=== PATIENT | female | born 2005 | race African-American/Black ===

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

== ENCOUNTER 2024-04-29 10:12 | Outpatient (AMB) | payer OTHER, SELFPAY ==
--- NOTE | 2024-04-29 10:13 | MHC.OFVISPED ---
Vital Signs 04/29/24 10:22 Height 5 ft 6.5 in Height percentile 90 Weight 122 lb Weight percentile 50 Measurement Type Standing Scale BMI 19.4 BMI percentile 25 Temp 98.5 F Temp Source Temporal Artery Scan Pulse 90 Pulse Source Pulse Oximeter BP 112/68 Blood Pressure Source Manual Cuff/Palpation Position Sitting Pulse Oximetry (%) 99 Pediatric Intake Visit Reasons: Headaches Accompanied by: Mother Allergies No Known Allergies Allergy (Verified 04/29/24 10:23) Medication List - Last Reconciled 04/29/24 by Yumiko Salguero PA-C albuterol sulfate 90 mcg/actuation 2 puffs inhalation Q4-6H PRN cholecalciferol (vitamin D3) 1,250 mcg PO QWEEK 6 weeks cholecalciferol (vitamin D3) 50 mcg PO DAILY 30 days fluticasone propionate 50 mcg/actuation (Flonase Allergy Relief) 2 sprays intranasal DAILY 30 days Dental Screening Dental Screen Date: 08/28/23 HPI Comments Details: 18-year-old female presents accompanied by her mother and younger sister for evaluation of headaches. Patient reports she has had headaches for several years, however they have recently worsened and are occurring more frequently. Patient reports that over the past several months she has been waking up with pain in the right frontal and temporoparietal area. She will typically take a Tylenol or ibuprofen which helps. She reports that by the time she gets to work the headache is typically gone and she can complete her day, however by the end of her shift and when she gets back home the headache has returned. She will often nap in the afternoons to alleviate the pain. Admits to photophobia, dizziness and nausea. She sleeps about 9 hours a night but reports she often wakes up around 2 or 3 in the morning and typically has interrupted sleep. Chronically skips breakfast but eats lunch and dinner every day. Has been working on increasing water intake during the day. 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 Reports her overall stress and anxiety symptoms are better since starting her new job. Does not drink caffeine. No family history of migraines reported. Has been using Flonase which has alleviated her nasal obstruction but has not helped with her headaches. [facility] Medical History Asthma Appendicitis Surgical History History of appendectomy Family History Maternal Grandmother Hypertension Cardiovascular disease Other Asthma Social History (Updated 04/29/24 @ 10:57 by Yumiko Salguero PA-C) Household Members: Family Housing: House Alcohol intake: never Patient Tobacco Use Status: Never used Tobacco Current occupational status: employed Current occupation: [employer] Cognitive needs: No Hearing needs: No Vision needs: No Review of Systems Const All systems reviewed & are unremarkable except as noted in HPI and below Pediatric Exam Const Constitutional General: no acute distress, well developed, alert and awake Nutritional appearance: well nourished HENMT Head: normal to inspection, normocephalic and atraumatic Ears: hearing grossly normal bilaterally, external ears normal, TM's normal bilaterally and EAC's normal Nose: Normal external nose present, Normal nares present and Normal nasal mucous membranes and turbinates present Mouth: Normal oral and palatal mucosa present, lip normal, tongue normal, moist mucous membranes and palate normal Throat: posterior oropharynx normal, tonsils normal and uvula midline Eyes General: appearance normal, both eyes and all related structures Alignment and Position: alignment normal Periorbital: periorbital findings normal Eyelids: eyelids normal Conjunctivae: conjunctivae normal Sclerae: sclerae normal Pupils: Equal, round and reactive pupils present EOM: EOMs intact bilaterally Direct ophthalmoscopy: no photophobia Neck Lymphatic: no lymphadenopathy noted Chest Chest: normal inspection of the chest Resp Effort & Inspection: normal respiratory effort Auscultation: clear to auscultation bilaterally Cardio Rate: regular rate Rhythm: regular rhythm Heart sounds: S1 normal heart sound present and S2 normal heart sound present Skin General: no rashes or lesions noted Neuro General: Yes No meningeal signs Cranial nerves: Yes CN's II-XII intact bilaterally and Yes Equal, round and reactive pupils present Cognition (Neuro): normal cognition Gait: Normal gait present Motor exam (neuro): Motor abnormalities not present Psych Appearance: well kempt Mood: congruent mood Assessment & Plan Assessment & Plan (1) Chronic headache: Code(s): R51.9 - Headache, unspecified; G89.29 - Other chronic pain Qualifiers: Headache type: unspecified Intractability: not intractable Qualified Code(s): R51.9 - Headache, unspecified; G89.29 - Other chronic pain Plan: 18-year-old female with chronic, daily headaches. Discussed that patient's headaches are likely migrainous in etiology. However, given the increase in frequency and severity of headaches I recommended we proceed with an MRI of the brain without contrast to rule out intracranial pathology. Will try sumatriptan for abortive therapy. Proper use of medication discussed. Reviewed the risk of rebound headache. We will consider prophylactic therapy with magnesium, B2 and amitriptyline after MRI results return. Orders: Orders MR head/brain wo con Today G89.29 - Other chronic pain, R51.9 - Headache, unspecified Medications: New sumatriptan succinate take 1 tab at onset of headache; if no relief may repeat 1 tab after at least 2 hrs; max = 4 tabs/24 hr PO 9 tabs 0RF
[2024-04-29 10:22] VITALS: BP 112/68; PULSE 90; TEMP 36.9; O2SAT 99; BMI 19.4
== END 2024-04-29 10:58 | disposition home or self-care (01) ==
PROVIDERS: PCP Physician Assistant; Visit Provider Physician Assistant
DX: R51.9 Headache, unspecified (principal); G89.29 Other chronic pain
CPT/HCPCS: 99214

== ENCOUNTER 2024-07-11 19:21 | Outpatient (REF) | payer OTHER, SELFPAY ==
--- NOTE | ~2024-07-11 | MR_ITS ---
EXAMINATION: MR BRAIN WITHOUT CONTRAST CLINICAL INFORMATION: Headache. COMPARISON: None available. TECHNIQUE: MRI of the brain was obtained using routine sequences without contrast. FINDINGS: Susceptibility artifact from the patient's dental hardware limits evaluation of the anterior cranial fossae. Within this limitation of this exam, there is no demonstrated focal restricted diffusion to suggest acute or subacute cerebral ischemia. No demonstrated evidence of acute or chronic hemorrhagic products on heme-sensitive imaging. Few nonspecific small foci of T2 FLAIR hyperintensity within the deep and periventricular white matter of the bilateral frontal lobes. No additional parenchymal signal abnormalities. The ventricles are normal in morphology and size. No abnormal mass effect. No midline shift. Normal appearance of the pituitary gland. The cerebellar tonsils are mildly low lying, positioned 0.4 cm below the foramen magnum. There is partial crowding of the foramen magnum. Normal arterial and venous vascular flow voids are present. Normal, homogeneous marrow signal. No signal abnormalities within the mastoids. MR/MR head/brain wo con IMPRESSION: 1. No acute intracranial abnormalities. 2. Minimal nonspecific white matter changes. 3. Mild cerebellar tonsillar ectopia. Partial crowding of the foramen magnum. Electronically signed by: Ronald Baez DO 07/11/2024 09:21 PM EDT
== END 2024-07-11 19:22 | disposition home or self-care (01) ==
LOC: HO.MRI 19:21
PROVIDERS: Visit Provider Physician Assistant
DX: R51.9 Headache, unspecified (principal); G89.29 Other chronic pain
CPT/HCPCS: 70551

== ENCOUNTER 2024-08-03 11:07 | Outpatient (AMB) | payer OTHER, SELFPAY ==
--- NOTE | 2024-08-03 11:13 | A.OFFPC_ITS ---
Vital Signs 08/03/24 11:17 Height 5 ft 6.38 in Weight 126 lb 4 oz BMI 20.1 BP 110/76 Blood Pressure Location Rt brachial Position Sitting Respiration 12 Pulse 81 Pulse Source Pulse Oximeter Temp 98.1 F Temp Source Oral Pulse Oximetry (%) 99 Oxygen Delivery Method Room Air Intake Visit Reasons: deshawn from jose m/ medication Intake Note: New patient visit. Needs refill on Flonse Allergies No Known Allergies Allergy (Verified 08/03/24 12:08) Medication List - Last Reconciled 08/03/24 by Francesca Gill, [facility] albuterol sulfate 90 mcg/actuation 2 puffs inhalation Q4-6H PRN fluticasone propionate 50 mcg/actuation (Flonase Allergy Relief) 2 sprays intranasal DAILY 30 days sumatriptan succinate take 1 tab at onset of headache; if no relief may repeat 1 tab after at least 2 hrs; max = 4 tabs/24 hr PO Tobacco use date assessed: 08/03/24 Dental Screening Dental Screen Date: 08/03/24 Did you have a dental visit in the last 12 months?: Yes Did you have a dental problem in the last 6 months where you did not have access to dental care?: No Was dental information given to patient?: Patient has dentist HPI HPI Comments 2 History of Present Illness Details 18-year-old female with vitamin-D defici ency, mild intermittent asthma, migraine headaches, major depressive disorder, generalized anxiety disorder allergic rhinitis, cerebellar tonsillar ectopia s/p appendectomy Social: Works at [employer] [place], born in [place], lives with mother. Does not drive. Fri ends and family bring her to appointments. Her hope is to return to college for a nursing degree. Health Maintenance Flu declined Tdap 2018 Pap n/a Specialists: Counseling Neuro @ [facility] - no longer ff'd Here today to est care; coming from Dr Jose M Collins, and for complete physical exam. Pediatric records reviewed before today's visit. Today she reports that she was active with a neurologist/neurosurg at [facility]. Reports that she had a brain MRI completed - reviewed 06/2024. Advised that the only thing that she can do for her chronic migraine headaches is to take medications. She does suffer from migraine headaches every single day associated with nausea, dizziness, feeling fatigued and weak. She also does endorse car sickness. She denies any vomiting. She has never been on a preventative migraine medication. She is currently prescribed Imitrex of what she only takes 1 tablet. She has never repeated the 2nd dose as she was not aware that she could do this. She also uses Tylenol and [id number] pain relievers. She wears eyeglasses in his overdue for an eye exam. Asthma is well controlled with p.r.n. use of albuterol. Allergies are well controlled with use of Flonase. Does have a history of vitamin-D deficiency however stopped taking the vitamin-D supplement. Was in counseling in the past for generalized anxiety and major depressive disorder. While her symptoms continue and occur daily she declines any medications or referrals for counseling at this time. Reports regular menses. She is not sexually active and denies ever having been sexually active. She is not on any control. Declined flu vaccine Plan Start riboflavin 400 mg p.o. daily at bedtime for migraine prevention, start amitriptyline 10 mg p.o. daily at bedtime also for migraine prevention, advised to use Imitrex x2 doses if needed rather than just 1 dose. Start p.r.n. Zofran as needed for nausea associated with migraine headaches. Referred to Ophthalmology for eye exam. Continue all medications as currently prescribed Return to office in 1 year for complete physical exam, sooner as needed. [facility] Medical History (Updated 08/03/24 @ 15:29 by Francesca Gill, [facility]) Moderate anxiety Mild depression Asthma Appendicitis Surgical History History of appendectomy Family History Maternal Grandmother Hypertension Cardiovascular disease Other Asthma Social History (Updated 08/03/24 @ 11:17 by Comfort Bragg CMA) Household Members: Family Housing: House (Town house) Alcohol intake: never Patient Tobacco Use Status: Never used Tobacco e-Cigarette/Vaping Use: Never Used Use of substances other than those prescribed or required for medical reasons: No service: No Current occupational status: employed 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 1. Little interest or pleasure in doing things: more than half the days 2. Feeling down, depressed, or hopeless: more than half the days 3. Trouble falling or staying asleep, or sleeping too much: more than half the days 4. Feeling tired or having little energy: more than half the days 5. Poor appetite or overeating: more than half the days 6. Feeling bad about yourself - or that you are a failure or have let yourself or your family down: more than half the days 7. Trouble concentrating on things, such as reading the newspaper or watching television: more than half the days 8. Moving or speaking so slowly that other people could have noticed. Or the opposite - being so fidgety or restless that you have been moving around a lot more than usual: not at all 9. Thoughts that you would be better off or of hurting yourself in some way: not at all Total score: 14 Depression Screening Interpretation: Positive Depression Screening Follow-up: Existing condition and Declines treatment Depression Screening Done: Yes 91338 - PHQ-9 Billing: Yes Source: Developed by Drs. Derik Rowe, Aracelis Jo, George Kaur and colleagues, with an educational sissy from [employer]. Thrive Questionnaire Date Thrive assessed: 08/03/24 I am a: Patient What is your living situation today?: I have a steady place to live Within the past 12 months, did the food you bought not last and you didn't have the money to get more?: Never true Within the past 12 months, did you worry whether your food would run out before you got money to buy more?: Never true Do you have trouble paying for medicines?: No Do you have trouble getting transportation to medical appointments?: No Do you have trouble paying your heating and electricity bill?: No Do you have trouble taking care of your child, family member or friend?: No Do you have trouble with day-to-day activities such as bathing, preparing meals, shopping, managing finances, etc.?: No Are you currently unemployed and looking for a job?: No Are you interested in more education?: No Please select the resources that you would like help with: None Currently or been in a relationship where the following occur: No concerns reported THRIVE Score: 0 AUDIT C Alcohol Use Questionnaire (AUDIT-C) 1. How often do you have a drink containing alcohol?: Never 3. How often do you have six or more drinks on one occasion?: Never Total Score: 0 Score Reviewed/Action Taken: Yes RAVI-7 AMB Questionnaire RAVI-7 Date RAVI - 7 assessed: 08/03/24 Feeling nervous, anxious, or on edge: 2 = More than half the days Not being able to stop or control worryin = More than half the days Worrying too much about different things: 2 = More than half the days Trouble relaxin = More than half the days Being so restless that it is hard to sit still: 2 = More than half the days Becoming easily annoyed or irritable: 2 = More than half the days Feeling afraid as if something awful might happen: 2 = More than half the days Total RAVI-7 score (0-4 normal; 5-9 mild; 10-14 moderate; 15-21 severe): 14 Source: Developed by Drs. Derik Roew, Aracelis Jo, George Kaur and colleagues, with an educational sissy from [employer]. RAVI-7 Assessment Billing RAVI-7 Assessment Tool: RAVI-7 Assessment 70482 ACT Questionnaire In the past 4 weeks, how much of the time did your asthma keep you from getting as much done at work, school or at home?: None of the time During the past 4 weeks, how often have you had shortness of breath?: Not at all During the past 4 weeks, how often did your asthma symptoms wake you up at night or earlier than usual in the morning?: Not at all During the past 4 weeks, how often have you had to use your rescue inhaler or nebulizer medication?: Not at all How would you rate your asthma control during the past 4 weeks?: Completely controlled ACT Interpretation: Negative Score: 25 Review of Systems Const Details: Constitutional: Denies fever. Skin: Denies rash. Eye: Denies eye pain. ENMT: Denies sore throat and nasal congestion. Respiratory: Denies shortness of breath and cough. Gastrointestinal: Denies nausea, vomiting or abdominal pain. Cardiovascular: Denies chest pain and syncope. Genitourinary: Denies dysuria. Musculoskeletal: Denies back pain and extremity pain. Psychiatric: Denies suicidal thoughts and substance abuse. Allergy/ Immunologic: Denies impaired immunity. Physical exam (Primary Care) Vital Signs: Last Vital Signs Temp 98.1 F 08/03/24 11:17 Pulse 81 08/03/24 11:17 Resp 12 08/03/24 11:17 BP 110/76 08/03/24 11:17 Pulse Ox 99 08/03/24 11:17 Oxygen Delivery Method Room Air 08/03/24 11:17 BMI result Body Mass Index 20.1 Tobacco/Smoking Status: Tobacco use Status Tobacco use date assessed 08/03/24 08/03/24 11:21 Patient Tobacco Use Status Never used Tobacco 08/03/24 11:21 e-Cigarette/Vaping Use Never Used 08/03/24 11:21 Depression Screening Interpretation: Positive Depression Screening Follow-up: Existing condition and Declines treatment Currently or been in a relationship where the following occur: No concerns reported Const Other: General: Well developed, well nourished, in no acute distress. Appears stated age. Head: Normocephalic, atraumatic. Eyes: Pupils are equal, round and reactive to light and accommodation. Conjunctivae are clear. Vision grossly normal. Ears: TMs clear AU, EACS WNL Nose: Patent, without discharge. Mouth: There are no ulcers or lesions noted. No inflammation, no post nasal drip, no plaques nor exudates. Neck: Supple, no adenopathy or thyromegaly. Lungs: Clear to auscultation bilaterally. No rales, rhonchi or wheeze noted. Good air flow in all [place]. Heart: Regular rate and rhythm. No murmurs, click, rubs or gallops are noted. Abdomen: Bowel sounds present in all quadrants. The abdomen is soft, nontender, with no masses or organomegaly noted. No hernias are noted. Musculoskeletal: Joints are nontender, without swelling, redness, or effusions. Range of motion is observed to be normal. Pulses: Peripheral pulses are equal and palpable bilaterally. Extremities: No clubbing, cyanosis nor edema is noted. Neurologic: Gait and station normal. Cranial Nerves 2-12 intact. Motor strength grossly symmetrical and intact. No sensory loss. Balance normal. Skin: No rashes, ulcers, or lesions noted. Turgor is good. Skin color is good. Hair and nails are without abnormalities. Psych: Normal eye contact, affect and mood appropriate, and normal interactions. Patient is alert and appropriate to context. Coding Level of Care Code New Pt Prev Care 18-39yr([id number] Diagnoses Encounter for general adult medical examination without abnormal findings Z00.00 Vitamin D deficiency E55.9 Mild episode of recurrent major depressive disorder F33.0 Major depression episode severity: mild RAVI (generalized anxiety disorder) F41.1 Cerebellar tonsillar ectopia Q04.8 Intractable migraine without aura and with status migrainosus G43.011 Status migrainosus presence: with status migrainosus Intractability: intractable Blurred vision, bilateral H53.8 Laboratory exam ordered as part of routine general medical examination Z00.00 Mild intermittent asthma in adult without complication J45.20 Additional Codes Asthma Control Questionnaire - ACT Interpretation: Negative ([id number]) PHQ-9 - 95937 - PHQ-9 Billing: Yes ([id number]) RAVI-7 Assessment Billing - RAVI-7 Assessment Tool: RAVI-7 Assessment 84536 ([id number]) Assessment & Plan Assessment & Plan (1) Encounter for general adult medical examination without abnormal findings: Code(s): Z00.00 - Encounter for general adult medical examination without abnormal findings Plan: . (2) Vitamin D deficiency: Code(s): E55.9 - Vitamin D deficiency, unspecified Category: Medical Plan: . (3) MDD (major depressive disorder), recurrent episode: Code(s): F33.9 - Major depressive disorder, recurrent, unspecified Category: Medical Qualifiers: Major depression episode severity: mild Qualified Code(s): F33.0 - Major depressive disorder, recurrent, mild Plan: . (4) RAVI (generalized anxiety disorder): Code(s): F41.1 - Generalized anxiety disorder Category: Medical Plan: . (5) Cerebellar tonsillar ectopia: Comment: Seen on MRI imaging, referred to Neurosurgery - no surgery needed. 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 Code(s): Q04.8 - Other specified congenital malformations of brain Category: Medical Plan: . (6) Migraine headache without aura: Code(s): G43.009 - Migraine without aura, not intractable, without status migrainosus Category: Medical Qualifiers: Status migrainosus presence: with status migrainosus Intractability: intractable Qualified Code(s): G43.011 - Migraine without aura, intractable, with status migrainosus Plan: . (7) Blurred vision, bilateral: Code(s): H53.8 - Other visual disturbances Category: Medical Plan: . (8) Laboratory exam ordered as part of routine general medical examination: Code(s): Z00.00 - Encounter for general adult medical examination without abnormal findings Category: Medical Plan: . (9) Mild intermittent asthma in adult without complication: Code(s): J45.20 - Mild intermittent asthma, uncomplicated Category: Medical Plan: . Orders: Orders Complete Blood Count no Diff Today Z00.00 - Encounter for general adult medical examination without abnormal findings Lipid Panel Today Z00.00 - Encounter for general adult medical examination without abnormal findings TSH reflex Free T4 Today Z00.00 - Encounter for general adult medical examination without abnormal findings Vitamin B12 and Folate Today Z00.00 - Encounter for general adult medical examination without abnormal findings IRON PROFILE Today Z00.00 - Encounter for general adult medical examination without abnormal findings Comprehensive Met. Panel Today Z00.00 - Encounter for general adult medical examination without abnormal findings Hemoglobin A1c Today Z00.00 - Encounter for general adult medical examination without abnormal findings Microalbumin, Random (w Creat) Today Z00.00 - Encounter for general adult medical examination without abnormal findings Vitamin D 25-OH Total Today Z00.00 - Encounter for general adult medical examination without abnormal findings Referrals Ophthalmology Referral H53.8 - Other visual disturbances Medications: New riboflavin (vitamin B2) for migraine prevention 400 mg PO DAILY 90 tabs 2RF amitriptyline for migraine prevention 10 mg PO BEDTIME 90 tabs 2RF ondansetron HCl 4 mg PO Q8H 3 days PRN 15 tabs 0RF nausea and vomiting Refilled fluticasone propionate 50 mcg/actuation (Flonase Allergy Relief) administer into each nostril 2 sprays intranasal DAILY 30 days 16 grams 11RF sumatriptan succinate take 1 tab at onset of headache; if no relief may repeat 1 tab after at least 2 hrs; max = 4 tabs/24 hr PO 9 tabs 3RF albuterol sulfate 90 mcg/actuation 2 puffs inhalation Q4-6H PRN 6.7 grams 1RF shortness of breath or wheezing Patient Instructions: Health screenings for women You should visit your health care provider from time to time, even if you are healthy. The purpose of these visits is to: Screen for medical issues Assess your risk for future medical problems Encourage a healthy lifestyle Update vaccinations and other preventive care services Help you get to know your provider in case of an illness Information Even if you feel fine, you should still see your provider for regular checkups. These visits can help you avoid problems in the future. For example, the only way to find out if you have high blood pressure is to have it checked regularly. High blood sugar and high cholesterol levels also may not have any symptoms in the early stages. A simple blood test can check for these conditions. There are specific times when you should see your provider or receive specific health screenings. The [place] Preventive Services Task Force publishes a list of recommended screenings. Below are screening guidelines for women ages 18 to 39. BLOOD PRESSURE SCREENING Your blood pressure should be checked at least once every 3 to 5 years if: Your blood pressure is in the normal range (top number less than 120 mm Hg and bottom number less than 80 mm Hg) You don't have risk factors for high blood pressure Ask your provider if you need your blood pressure checked more often if: The top number is 120 to 129 mm Hg or the bottom number is 70 to 79 mm Hg You have diabetes, heart disease, kidney problems, are overweight, or have certain other health conditions You have a first-degree relative with high blood pressure You are Black You had high blood pressure during a If the top number is 130 mm Hg or greater or the bottom number is 80 mm Hg or greater, this is considered stage 1 hypertension. Schedule an appointment with your provider to learn how you can reduce your blood pressure. Watch for blood pressure screenings in your area. Ask your provider if you can stop in to have your blood pressure checked. BREAST CANCER SCREENING Experts do not agree about the benefits of breast self-exams in finding breast cancer or saving lives. Talk to your provider about what is best for you. A screening mammogram is not recommended for most women under age 40. Your provider may discuss and recommend mammograms, MRI scans, or ultrasounds if you have an increased risk for breast cancer, such as: A mother or sister who had breast cancer at a young age (most often starting screening earlier than the age the close relative was diagnosed) You carry a high-risk genetic marker CERVICAL CANCER SCREENING Cervical cancer screening should start at age 21 years unless your provider advises otherwise. After the first test: Women ages 21 through 29 should have a Pap test every 3 years. Exoprts do not agree on whether HPV testing is recommended for this age group. Women ages 30 through 65 should be screened with either a Pap test every 3 years or the HPV test every 5 years or both tests every 5 years (called cotesting ). Women who have been treated for precancer (cervical dysplasia) should continue to have Pap tests for 20 years after treatment or until age 65, whichever is longer. If you have had your uterus and cervix removed (total hysterectomy), and you have not been diagnosed with cervical cancer or precancer (high grade cervical neoplasia), you do not need cervical cancer screening. CHOLESTEROL SCREENING Cholesterol screening should begin at: Age 45 for women with no known risk factors for coronary heart disease Age 20 for women with known risk factors for coronary heart disease Repeat cholesterol screening should take place: Every 5 years for women with normal cholesterol levels More often if changes occur in lifestyle (including weight gain and diet) More often if you have diabetes, heart disease, kidney problems, or certain other conditions DIABETES SCREENING You should be screened for diabetes starting at age 35 and then repeated every 3 years if you have no risk factors for diabetes. Screening may need to start earlier and be repeated more often if you have other risk factors for diabetes, such as: You have a first degree relative with diabetes. You are overweight or have obesity. You have high blood pressure, prediabetes, or a history of heart disease. Screening for diabetes should be done if you are planning to become and you are overweight and have other risk factors such as high blood pressure. DENTAL EXAM Go to the dentist once or twice every year for an exam and cleaning. Your dentist will evaluate if you need more frequent visits. EYE EXAM Have an eye exam every 5 to 10 years before age 40. If you have vision problems, have an eye exam every 2 years or more often if recommended by your provider. You should have an eye exam that includes an examination of your retina (back of your eye) at least every year if you have diabetes. IMMUNIZATIONS Commonly needed vaccines include: Flu shot: get one every year. COVID-19 vaccine: ask your provider what is best for you. Tetanus-diphtheria and acellular pertussis (Tdap) vaccine: have one at or after age 19 as one of your tetanus-diphtheria vaccines if you did not receive it as an adolescent. Tetanus-diphtheria: have a booster (or Tdap) every 10 years. Varicella vaccine: receive 2 doses if you never had chickenpox or the varicella vaccine. Hepatitis B vaccine: receive 2, 3, or 4 doses, depending on your exact circumstances. Measles, mumps, and rubella (MMR) vaccine: receive 1 to 2 doses if you are not already immune to MMR. Your provider can tell you if you are immune. Ask your provider about the human papillomavirus (HPV) vaccine if: You have not received the HPV vaccine in the past You have not completed the full vaccine series (you should catch up on this shot) Ask your provider if you should receive other immunizations if you have certain health problems that increase your risk for some diseases such as pneumonia. INFECTIOUS DISEASE SCREENING Women who are sexually active should be screened for chlamydia and gonorrhea up until age 25. Women 25 years and older should be screened for chlamydia and gonorrhea if at high risk. Screening for hepatitis C: All adults ages 18 to 79 should get a one-time test for hepatitis C. people should be screened at every . Screening for human immunodeficiency virus (HIV): All people ages 15 to 65 should get a one-time test for HIV. Depending on your lifestyle and medical history, you may also need to be screened for infections such as syphilis and HIV, as well as other infections. PHYSICAL EXAM All adults should visit their provider from time to time, even if they are healthy. The purpose of these visits is to: Screen for disease Assess your risk of future medical problems Encourage a healthy lifestyle Update your vaccinations and other preventive care services Maintain a relationship with a provider in case of an illness Your height, weight, and BMI should be checked at every exam. During your exam, your provider may ask you about: Depression and anxiety Diet and exercise Alcohol and tobacco use Safety issues, such as using seat belts, smoke detectors, and intimate partner violence Your medicines and risk for interactions SKIN SELF-EXAM Your provider may check your skin for signs of skin cancer, especially if you're at high risk, such as if you: Have had skin cancer before Have close relatives with skin cancer Have a weakened immune system OTHER SCREENING Talk with your provider about colon cancer screening if you have a strong family history of colon cancer or polyps, or if you have had inflammatory bowel disease or polyps yourself. Routine bone density screening of women under 40 is not recommended.
[2024-08-03 11:17] VITALS: BP 110/76; PULSE 81; RESP 12; TEMP 36.7; O2SAT 99; BMI 20.1
== END 2024-08-03 12:25 | disposition home or self-care (01) ==
PROVIDERS: PCP Nurse Practitioner Family; Visit Provider Nurse Practitioner Family
DX: Z00.00 Encounter for general adult medical examination without abnormal findings (principal); E55.9 Vitamin D deficiency, unspecified; Q04.8 Other specified congenital malformations of brain; F33.0 Major depressive disorder, recurrent, mild; F41.1 Generalized anxiety disorder; G43.011 Migraine without aura, intractable, with status migrainosus; H53.8 Other visual disturbances; J45.20 Mild intermittent asthma, uncomplicated

== ENCOUNTER → 2024-08-03 11:07 | Outpatient (BNVA) | payer OTHER, SELFPAY | PROVIDERS: PCP Nurse Practitioner Family; Visit Provider Nurse Practitioner Family | DX: Z00.00 Encounter for general adult medical examination without abnormal findings (principal); E55.9 Vitamin D deficiency, unspecified; F33.0 Major depressive disorder, recurrent, mild; F41.1 Generalized anxiety disorder; Q04.8 Other specified congenital malformations of brain; G43.011 Migraine without aura, intractable, with status migrainosus; H53.8 Other visual disturbances; J45.20 Mild intermittent asthma, uncomplicated | CPT/HCPCS: 96127; 96160; 99385 ==

== ENCOUNTER 2024-08-04 10:46 | Outpatient (REF) | payer OTHER, SELFPAY ==
[2024-08-04 14:24] LABS: Hematocrit 38.9 % (37.0-47.0); Mean Corpuscular HGB Conc 33.4 g/dl (31.0-35.0); Mean Corpuscular Hemoglobin 29.3 pg (27.0-33.0); Mean Corpuscular Volume 87.8 fL (80.0-98.0); Platelet Count 228 X10*3/uL (160-400); Red Blood Count 4.43 X10*6/uL (4.20-5.50); Red Cell Distribution Width 12.3 % (11.0-16.0); White Blood Count 7.2 X10*3/uL (4.8-10.8)
[2024-08-04 14:32] LABS: Estimated Average Glucose 100 mg/dL; Hemoglobin A1C 102.0199 umol/L; Hemoglobin A1c % 5.1 % (<6.0); Total Hemoglobin (HGBA1C) 3185.3357 umol/L
[2024-08-04 15:30] LABS: Vitamin D 25-OH Total 29.7 ng/mL (>30)
[2024-08-04 15:33] LABS: Folate 11.7 ng/mL (> or = 4.0); Vitamin B12 911 pg/mL (200-900)
[2024-08-04 16:45] LABS: Alanine Aminotransferase 12 U/L (0-31); Albumin Level 4.3 g/dL (3.5-5.0); Alkaline Phosphatase 62 U/L (39-117); Anion Gap 9 (12-20); Aspartate Amino Transferase 26 U/L (5-31); Bilirubin Total 0.9 mg/dL (0.0-1.0); Blood Urea Nitrogen 11 mg/dL (9-16); Calcium 9.4 mg/dL (8.4-10.2); Carbon Dioxide 27 mmol/L (22-29); Chloride 106 mmol/L (96-108); Cholesterol 174 mg/dL (<200); Estimated Glomerular Filt Rate > 60; Glucose Random 81 mg/dL (60-115); HDL Cholesterol 56 mg/dL (>40); Iron 78 mcg/dL (30-160); LDL Cholesterol Calculated 108 mg/dL (<100); Percent Iron Saturation 25 % (15-50); Sodium 138 mmol/L (135-145); Total Iron Binding Capacity 310 mcg/dL (228-428); Total Protein 7.7 g/dL (6.5-8.0); Triglycerides 50 mg/dL (<150); Unsaturated Iron Binding 232 ug/dL
[2024-08-04 16:57] LABS: Creatinine Urine 134.79 mg/dL; Microalbumin Urine < 5.0 mg/L
== END 2024-08-04 10:47 | disposition home or self-care (01) ==
LOC: HO.WFDLDS 10:46
PROVIDERS: Visit Provider Nurse Practitioner Family
DX: Z00.00 Encounter for general adult medical examination without abnormal findings (principal)
CPT/HCPCS: 36415; 80053; 80061; 82043; 82306; 82570; 82607; 82746; 83036; 83540; 84443; 85027

== ENCOUNTER → 2024-10-28 08:23 | Outpatient (AMB) ==
--- NOTE | 2024-10-28 09:52 | MHC.PC.OV ---
Vital Signs 10/28/24 09:52 Height 5 ft 6 in Weight 128 lb BMI 20.7 BP 104/58 L Blood Pressure Location Rt brachial Position Sitting Pulse 98 Pulse Source Pulse Oximeter Pulse Oximetry (%) 98 Oxygen Delivery Method Room Air Intake Visit Reasons: medication review Allergies No Known Allergies Allergy (Verified 10/28/24 09:52) Medication List - Last Reconciled 10/28/24 by Francesca Gill, [employer]- albuterol sulfate 90 mcg/actuation 2 puffs PO Q4-6H PRN amitriptyline 10 mg PO BEDTIME fluticasone propionate 50 mcg/actuation (Flonase Allergy Relief) 2 sprays intranasal DAILY 30 days ondansetron HCl 4 mg PO Q8H PRN 3 days riboflavin (vitamin B2) 400 mg PO DAILY sumatriptan succinate take 1 tab at onset of headache; if no relief may repeat 1 tab after at least 2 hrs; max = 4 tabs/24 hr PO Tobacco use date assessed: 10/28/24 Dental Screening Dental Screen Date: 10/28/24 Did you have a dental visit in the last 12 months?: Yes Did you have a dental problem in the last 6 months where you did not have access to dental care?: No Was dental information given to patient?: Patient has dentist HPI HPI Comments History of Present Illness Details 18-year-old female with vitamin-D deficiency, mild intermittent asthma, migraine headaches, major depressive disorder, generalized anxiety disorder allergic rhinitis, cerebellar tonsillar ectopia s/p appendectomy Social: Works at [employer], born in [place], lives with mother. Does not drive. Friends and family bring her to appointments. Her hope is to return to college for a nursing degree. Health Maintenance Flu declined Tdap 2018 Pap n/a Specialists: Counseling Neuro @ [facility] - no longer ff'd The patient is a 18-year-old female presenting with headaches. She reports that the headaches have been persistent and severe, affecting her quality of life. The headaches were evaluated by a neurologist who did not find any structural abnormalities necessitating a change in current treatment. Previously, she had been using sumatriptan for headache management, which provides inconsistent relief similar to Tylenol. She also takes amitriptyline at bedtime, which aids her sleep and partially alleviates headache frequency when she is well-rested. However, her headaches persist frequently and with significant intensity. The patient has attempted dietary changes, increasing fruit and fiber intake to mitigate potential headache triggers from sweets. She feels these lifestyle alterations have not substantially reduced headache occurrences. She is currently prescribed albuterol, amitriptyline, Flonase, and Zofran as needed for related symptoms. She has not been taking riboflavin, which was recommended to be taken in conjunction with amitriptyline for preventative headache therapy. Regarding her symptoms, she experiences fatigue, especially alongside her headaches. She reports frequent bloating with difficulty in bowel movements characterized by constipation and hemorrhoidal bleeding. There's an additional report of uninhibited episodes of nausea and vomiting not directly correlated with headaches. Finally, she mentions her eyes frequently watering, sometimes making her appear as though she is crying. Physical Exam General: Awake, alert. No apparent distress Eyes: Sclera and conjunctiva clear bilaterally, tears bilat Cardiovascular: Regular rate and rhythm Respiratory: Clear to auscultation bilaterally Abd soft nontedner normoactive BS Nonfocal neuro exam Discussion Notes I discussed with the patient the potential for increasing her sumatriptan dosage to 50 mg to better manage her migraines. We addressed the importance of adding riboflavin (vitamin B2) to her regimen to enhance the effectiveness of amitriptyline in headache prevention. We also talked about the use of MiraLAX to alleviate constipation and reduce hemorrhoidal bleeding, emphasizing that increased fluid intake would augment the fiber in her diet to improve bowel regularity. Given the fatigue and its potential link to her headache pattern, I proposed a sleep study to assess her nocturnal breathing patterns. I explained the procedure for the home sleep study, including the logistics and follow-up process. Additionally, I suggested [id number] eye drops for her watery eyes and underscored the importance of consistent use of her nasal spray to potentially mitigate this issue. Instructions were also given to ensure she maintains regular refills of sumatriptan to prevent interruption of her headache management. Patient Instructions - Increase sumatriptan dose to 50 mg as directed. - Begin taking riboflavin (vitamin B2) with amitriptyline at bedtime. - Use MiraLAX mixed in 8 oz of fluid at bedtime to alleviate constipation. - Maintain adequate water intake to support fiber intake. - Complete a home sleep study as scheduled, and follow up one week after. - Continue dietary changes favoring fruits over sweets. - Use nasal spray daily. - Consider ibvs-txf-tnimdsu drops for watery eyes. - Keep track of medication needs for timely refills. Plan For migraines, we will increase the patient's dose of sumatriptan to 50 mg to evaluate reduced headache frequency and intensity. Riboflavin will be added to her regimen at night to work synergistically with amitriptyline for better prophylactic management. Her constipation will be managed with MiraLAX, enhancing bowel movement regularity and alleviating hemorrhoidal symptoms. The patient's fatigue and possible sleep disturbances warrant a home sleep study to rule out sleep apnea or other nocturnal issues. Addressing underlying fatigue may contribute to more effective migraine management. Finally, adjustments in diet will continue with an emphasis on hydration and increased fiber consumption, along with nasal spray use for potential symptom relief regarding watery eyes. Follow-ups will be coordinated to assess medication efficacy and review the results of the sleep study. Patient was informed and verbally consented to the use of an ambient scribe for clinic note documentation during this visit. Total time spent caring for the patient today was 30 minutes. This includes time spent before the visit reviewing the chart, time spent during the visit, and time spent after the visit on documentation, reviewing laboratory results, diagnostic imaging, medications, performing a medically necessary evaluation, counseling on diagnoses, care coordination, ordering appropriate tests, ordering appropriate medications, review of tests performed by other providers, reporting test results with the patient, communication with other healthcare providers. 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 1. Little interest or pleasure in doing things: not at all 2. Feeling down, depressed, or hopeless: not at all 3. Trouble falling or staying asleep, or sleeping too much: not at all 4. Feeling tired or having little energy: not at all 5. Poor appetite or overeating: not at all 6. Feeling bad about yourself - or that you are a failure or have let yourself or your family down: not at all 7. Trouble concentrating on things, such as reading the newspaper or watching television: not at all 8. Moving or speaking so slowly that other people could have noticed. Or the opposite - being so fidgety or restless that you have been moving around a lot more than usual: not at all 9. Thoughts that you would be better off or of hurting yourself in some way: not at all Total score: 0 Depression Screening Interpretation: Negative Depression Screening Done: Yes 08224 - PHQ-9 Billing: Yes Source: Developed by Drs. Derik Rowe, Aracelis Jo, George Kaur and colleagues, with an educational sissy from [employer]. Thrive Questionnaire Date Thrive assessed: 10/28/24 I am a: Patient What is your living situation today?: I have a steady place to live Within the past 12 months, did the food you bought not last and you didn't have the money to get more?: Never true Within the past 12 months, did you worry whether your food would run out before you got money to buy more?: Never true Do you have trouble paying for medicines?: No Do you have trouble getting transportation to medical appointments?: No Do you have trouble paying your heating and electricity bill?: No Do you have trouble taking care of your child, family member or friend?: No Do you have trouble with day-to-day activities such as bathing, preparing meals, shopping, managing finances, etc.?: No Are you currently unemployed and looking for a job?: No Are you interested in more education?: No Please select the resources that you would like help with: None Currently or been in a relationship where the following occur: No concerns reported THRIVE Score: 0 AUDIT C Alcohol Use Questionnaire (AUDIT-C) 1. How often do you have a drink containing alcohol?: Never 3. How often do you have six or more drinks on one occasion?: Never Total Score: 0 Score Reviewed/Action Taken: Yes RAVI-7 AMB Questionnaire RAVI-7 Date RAVI - 7 assessed: 10/28/24 Feeling nervous, anxious, or on edge: 0 = Not at all Not being able to stop or control worryin = Not at all Worrying too much about different things: 0 = Not at all Trouble relaxin = Not at all Being so restless that it is hard to sit still: 0 = Not at all Becoming easily annoyed or irritable: 0 = Not at all Feeling afraid as if something awful might happen: 0 = Not at all Total RAVI-7 score (0-4 normal; 5-9 mild; 10-14 moderate; 15-21 severe): 0 Source: Developed by Drs. Derik Rowe, Aracelis Jo, George Kaur and colleagues, with an educational sissy from [employer]. RAVI-7 Assessment Billing RAVI-7 Assessment Tool: RAVI-7 Assessment 68958 Physical exam (Primary Care) Vital Signs: Last Vital Signs Pulse 98 10/28/24 09:52 BP 104/58 L 10/28/24 09:52 Pulse Ox 98 10/28/24 09:52 Oxygen Delivery Method Room Air 10/28/24 09:52 BMI result Body Mass Index 20.7 Tobacco/Smoking Status: Tobacco use Status Tobacco use date assessed 10/28/24 10/28/24 10:14 Patient Tobacco Use Status Never used Tobacco 10/28/24 09:52 e-Cigarette/Vaping Use Never Used 10/28/24 09:52 PHQ-9: PHQ-9 Score PHQ-9: Total score 0 10/28/24 09:57 Depression Screening Interpretation: Negative Thrive Assessment: Date of Thrive Assessment Date Thrive assessed 10/28/24 10/28/24 09:57 Currently or been in a relationship where the following occur: No concerns reported Coding Level of Care Code Est Pt Level 4 (71396) Complex EM visit Add On G2211 Diagnoses Intractable migraine without aura and with status migrainosus G43.011 Intractability: intractable Status migrainosus presence: with status migrainosus Daytime somnolence R40.0 Cerebellar tonsillar ectopia Q04.8 Mild episode of recurrent major depressive disorder F33.0 Major depression episode severity: mild Allergic rhinitis, unspecified seasonality, unspecified trigger J30.9 Allergic rhinitis trigger: unspecified Allergic rhinitis seasonality: unspecified RAVI (generalized anxiety disorder) F41.1 Slow transit constipation K59.01 Constipation type: slow transit constipation Grade I hemorrhoids K64.0 Hemorrhoid type: first degree Additional Codes RAVI-7 Assessment Billing - RAVI-7 Assessment Tool: RAVI-7 Assessment 96856 ([id number]) PHQ-9 - 13974 - PHQ-9 Billing: Yes ([id number]) Assessment & Plan Assessment & Plan (1) Migraine headache without aura: Code(s): G43.009 - Migraine without aura, not intractable, without status migrainosus Category: Medical Qualifiers: Intractability: intractable Status migrainosus presence: with status migrainosus Qualified Code(s): G43.011 - Migraine without aura, intractable, with status migrainosus (2) Daytime somnolence: Code(s): R40.0 - Somnolence Category: Medical (3) Cerebellar tonsillar ectopia: Comment: Seen on MRI imaging, referred to Neurosurgery - no surgery needed. 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 Code(s): Q04.8 - Other specified congenital malformations of brain Category: Medical (4) MDD (major depressive disorder), recurrent episode: Code(s): F33.9 - Major depressive disorder, recurrent, unspecified Category: Medical Qualifiers: Major depression episode severity: mild Qualified Code(s): F33.0 - Major depressive disorder, recurrent, mild (5) Allergic rhinitis: Code(s): J30.9 - Allergic rhinitis, unspecified Category: Medical Qualifiers: Allergic rhinitis trigger: unspecified Allergic rhinitis seasonality: unspecified Qualified Code(s): J30.9 - Allergic rhinitis, unspecified (6) RAVI (generalized anxiety disorder): Code(s): F41.1 - Generalized anxiety disorder Category: Medical (7) Constipation: Code(s): K59.00 - Constipation, unspecified Category: Medical Qualifiers: Constipation type: slow transit constipation Qualified Code(s): K59.01 - Slow transit constipation (8) Hemorrhoids: Code(s): K64.9 - Unspecified hemorrhoids Category: Medical Qualifiers: Hemorrhoid type: first degree Qualified Code(s): K64.0 - First degree hemorrhoids Plan . Orders: Orders RT home sleep study Today G43.011 - Migraine without aura, intractable, with status migrainosus, R40.0 - Somnolence Medications: New polyethylene glycol 3350 (Miralax) use 1/2 to 1 capful at bedtime in 8 oz of fluid. Hold for diarrhea 17 grams PO DAILY 510 grams 4RF Changed From sumatriptan succinate take 1 tab at onset of headache; if no relief may repeat 1 tab after at least 2 hrs; max = 4 tabs/24 hr PO 9 tabs 3RF To sumatriptan succinate take 1 tab at onset of headache; if no relief may repeat 1 tab after at least 2 hrs; max = 4 tabs/24 hr PO 9 tabs 12RF Refilled riboflavin (vitamin B2) for migraine prevention 400 mg PO DAILY 90 tabs 2RF
== END | disposition home or self-care (01) ==

== ENCOUNTER → 2024-10-28 08:23 | Outpatient (BNVA) | payer OTHER, SELFPAY | PROVIDERS: PCP Nurse Practitioner Family; Visit Provider Nurse Practitioner Family | DX: G43.011 Migraine without aura, intractable, with status migrainosus (principal); R40.0 Somnolence; F33.0 Major depressive disorder, recurrent, mild; J30.9 Allergic rhinitis, unspecified; F41.1 Generalized anxiety disorder; K59.01 Slow transit constipation; K64.0 First degree hemorrhoids; Q04.8 Other specified congenital malformations of brain | CPT/HCPCS: 96127 ==

== ENCOUNTER → 2025-01-10 14:15 | Outpatient (REF) | payer OTHER, SELFPAY | LOC: HO.SL 14:15 | PROVIDERS: PCP Nurse Practitioner Family; Visit Provider Nurse Practitioner Family | DX: G43.011 Migraine without aura, intractable, with status migrainosus (principal); R40.0 Somnolence; R06.83 Snoring | CPT/HCPCS: 95806 ==

== ENCOUNTER → 2025-01-10 14:51 | Outpatient (BNV) | payer OTHER, SELFPAY | PROVIDERS: PCP Nurse Practitioner Family; Visit Provider Internal Medicine | DX: R06.83 Snoring (principal); G47.10 Hypersomnia, unspecified | CPT/HCPCS: 95806 ==

== ENCOUNTER 2025-01-20 13:36 | Outpatient (AMB) | payer OTHER, SELFPAY ==
--- NOTE | 2025-01-20 14:27 | A.OFFPC_ITS ---
Intake Visit Reasons: Review sleep study report Intake Note: Telehealth to review sleep study and also patient feels sumatriptan is not working. Silk Screener Required: No Allergies No Known Allergies Allergy (Verified 01/20/25 14:28) Medication List - Last Reconciled 01/20/25 by Francesca Gill, [facility]- albuterol sulfate 90 mcg/actuation 2 puffs PO Q4-6H PRN amitriptyline 10 mg PO BEDTIME fluticasone propionate 50 mcg/actuation (Flonase Allergy Relief) 2 sprays intranasal DAILY 30 days ondansetron HCl 4 mg PO Q8H PRN 3 days polyethylene glycol 3350 (Miralax) 17 grams PO DAILY riboflavin (vitamin B2) 400 mg PO DAILY sumatriptan succinate take 1 tab at onset of headache; if no relief may repeat 1 tab after at least 2 hrs; max = 4 tabs/24 hr PO Tobacco use date assessed: 10/28/24 Dental Screening Dental Screen Date: 10/28/24 HPI HPI Comments History of Present Illness Details 19-year-old female with vitamin-D defici ency, mild intermittent asthma, migraine headaches, major depressive disorder, generalized anxiety disorder allergic rhinitis, cerebellar tonsillar ectopia s/p appendectomy Social: Works at [employer] [place], born in [place], lives with mother. Does not drive. Friends and family bring her to appointments. Her hope is to return to college for a nursing degree. Health Maintenance Flu declined Tdap 2018 Pap n/a Specialists: Counseling Neuro @ [facility] - no longer ff'd History of Present Illness - The patient is a 19-year-old female pr esenting with evaluation of snoring and headaches. - The recent sleep study was negative fo r sleep apnea, though it indicated significant snoring 36% of the time, with occasional minimal apneic events. - The snoring does not account for her d aytime fatigue or headaches. - She has not tried nasal strips for ma naging snoring. - The patient reports that the use of am itriptyline and riboflavin at night has effectively reduced her morning headaches. - Sumatriptan has been used for headache management but offers limited relief compared to ibuprofen, even w/ increased dose. - Daily use of nasal spray has been repo rted, along w/ allergy eye drops with + effects on allergy sx - previous stomach issues are resolved. Assessment and Plan 1. Snoring The sleep study was negative for sleep apnea but noted significant snoring. It is advised the patient uses nasal strips as an intervention to manage snoring, with the assessment of efficacy based upon reported changes. 2. Headache Amitriptyline and riboflavin are effective in reducing morning headaches. Given sumatriptan's limited efficacy, it will be replaced with another abortive migraine medication. Start Nurtec ODT 75mg po prn. Recommend cont. amitrip. and riboflavin as this has helped greatly. Allergies: cont nasal spray and eye drops. Recommended to fu if no improvement in sx. Or worsening sx. Otherwise recommend RTO for CPE Telehealth Attestation This clinical documentation accurately reflects the services provided during this telehealth encounter conducted via video conferencing. The patient has been explained that this is an interactive (audio/video) telehealth encounter and what that consists of. The patient understands and wishes to proceed. [employer] platform was used. Total time spent caring for the patient today was 16 minutes. This includes time spent before the visit reviewing the chart, time spent during the visit, and time spent after the visit on documentation, reviewing laboratory results, diagnostic imaging, medications, performing a medically necessary evaluation, counseling on diagnoses, care coordination, ordering appropriate tests, ordering appropriate medications, review of tests performed by other providers, reporting test results with the patient, communication with other healthcare providers. 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 Derik Rowe, Aracelis Jo, George Kaur and colleagues, with an educational sissy from [employer]. Physical exam (Primary Care) Tobacco/Smoking Status: Tobacco use Status Tobacco use date assessed 10/28/24 01/20/25 14:29 Patient Tobacco Use Status Never used Tobacco 01/20/25 14:29 e-Cigarette/Vaping Use Never Used 01/20/25 14:29 Thrive Assessment: Date of Thrive Assessment Date Thrive assessed 10/28/24 01/20/25 14:29 Telehealth Telehealth Telehealth Platform: [facility] Location of provider rendering services: practice address Location of patient: address on file Patient Identification confirmed using: Name, : Yes Telehealth method: voice only Patient verbally consented to treatment: Yes Patient verbally consented to billing insurance company: Yes Patient informed of any privacy concerns related to visit: Yes Minutes spent on Phone/Video with Pt.: 10 Coding Level of Care Code Tele Est Pt Level 3 (13427) Complex EM visit Add On G2211 Diagnoses Allergic rhinitis, unspecified seasonality, unspecified trigger J30.9 Allergic rhinitis trigger: unspecified Allergic rhinitis seasonality: unspecified Intractable migraine without aura and with status migrainosus G43.011 Status migrainosus presence: with status migrainosus Intractability: intractable Daytime somnolence R40.0 Assessment & Plan Assessment & Plan (1) Allergic rhinitis: Code(s): J30.9 - Allergic rhinitis, unspecified Category: Medical Qualifiers: Allergic rhinitis trigger: unspecified Allergic rhinitis seasonality: unspecified Qualified Code(s): J30.9 - Allergic rhinitis, unspecified (2) Migraine headache without aura: Code(s): G43.009 - Migraine without aura, not intractable, without status migrainosus Category: Medical Qualifiers: Status migrainosus presence: with status migrainosus Intractability: intractable Qualified Code(s): G43.011 - Migraine without aura, intractable, with status migrainosus (3) Daytime somnolence: Code(s): R40.0 - Somnolence Category: Medical Plan . Medications: New rimegepant (Nurtec ODT) 75 mg PO Q OTHER DAY PRN 30 tabs 1RF migraine headache Discontinued sumatriptan succinate Discontinued Reason: Doctor's Order take 1 tab at onset of headache; if no relief may repeat 1 tab after at least 2 hrs; max = 4 tabs/24 hr PO 9 tabs 12RF
== END 2025-01-20 15:40 | disposition home or self-care (01) ==
LOC: HO.HMCFM 13:36
PROVIDERS: PCP Nurse Practitioner Family; Visit Provider Nurse Practitioner Family
DX: J30.9 Allergic rhinitis, unspecified (principal); G43.011 Migraine without aura, intractable, with status migrainosus; R40.0 Somnolence

== ENCOUNTER → 2025-01-20 13:36 | Outpatient (BNVA) | payer OTHER, SELFPAY | PROVIDERS: PCP Nurse Practitioner Family; Visit Provider Nurse Practitioner Family | DX: J30.9 Allergic rhinitis, unspecified (principal); G43.011 Migraine without aura, intractable, with status migrainosus; R40.0 Somnolence; R06.83 Snoring | CPT/HCPCS: 98966 ==

== ENCOUNTER 2025-08-16 10:31 | Outpatient (REF) | payer OTHER, SELFPAY ==
[2025-08-16 14:36] LABS: Hematocrit 37.4 % (37.0-47.0); Hemoglobin 12.6 g/dl (12.0-16.0); Mean Corpuscular HGB Conc 33.7 g/dl (31.0-35.0); Mean Corpuscular Hemoglobin 29.0 pg (27.0-33.0); Mean Corpuscular Volume 86.2 fL (80.0-98.0); NRBC Abs Auto 0.000 X10*3/uL (0.0-0.012); NRBC Pct Auto 0.0 /100WBC (0.0-0.2); Platelet Count 254 X10*3/uL (160-400); Red Blood Count 4.34 X10*6/uL (4.20-5.50); White Blood Count 7.0 X10*3/uL (4.8-10.8)
[2025-08-16 15:53] LABS: Alanine Aminotransferase 10 U/L (0-31); Albumin Level 4.5 g/dL (3.5-5.0); Alkaline Phosphatase 64 U/L (39-117); Anion Gap 14 (12-20); Aspartate Amino Transferase 27 U/L (5-31); Blood Urea Nitrogen 8 mg/dL (9-16); Calcium 9.7 mg/dL (8.4-10.2); Carbon Dioxide 24 mmol/L (22-29); Chloride 104 mmol/L (96-108); Estimated Glomerular Filt Rate > 60; Potassium 3.8 mmol/L (3.3-5.1); Sodium 138 mmol/L (135-145); Total Protein 7.7 g/dL (6.5-8.0)
[2025-08-18 18:18] LABS: Immunoglobulin A 409 mg/dL (47-310)
== END 2025-08-16 10:32 | disposition home or self-care (01) ==
LOC: HO.WFDLDS 10:31
PROVIDERS: PCP Nurse Practitioner Family; Visit Provider Nurse Practitioner Family
DX: Z00.00 Encounter for general adult medical examination without abnormal findings (principal); R14.0 Abdominal distension (gaseous); E55.9 Vitamin D deficiency, unspecified; R10.9 Unspecified abdominal pain; G43.909 Migraine, unspecified, not intractable, without status migrainosus; F41.9 Anxiety disorder, unspecified; J30.9 Allergic rhinitis, unspecified; J45.20 Mild intermittent asthma, uncomplicated; F33.0 Major depressive disorder, recurrent, mild; F41.1 Generalized anxiety disorder; K59.01 Slow transit constipation; G43.011 Migraine without aura, intractable, with status migrainosus; Q04.8 Other specified congenital malformations of brain; Z28.21 Immunization not carried out because of patient refusal
CPT/HCPCS: 36415; 80053; 82306; 82784; 85027; 86364; 96127

== ENCOUNTER 2025-08-16 10:31 | Outpatient (AMB) | payer OTHER, SELFPAY ==
--- NOTE | 2025-08-16 10:33 | A.OFFPC_ITS ---
Vital Signs 08/16/25 10:42 Height 5 ft 6 in Weight 128 lb BMI 20.7 BP 101/67 Blood Pressure Location Lt brachial Position Sitting Respiration 12 Temp 97.2 F Temp Source Oral Comment unable to do o2 and pulse because of nails. Intake Visit Reasons: cpe Intake Note: CPE. Patient wants to discuss the med nyrtec. Cocoa Roaster Required: No Allergies No Known Allergies Allergy (Verified 08/16/25 10:33) Medication List - Last Reconciled 08/16/25 by Francesca Gill [facility]- albuterol sulfate 90 mcg/actuation 2 puffs PO Q4-6H PRN amitriptyline 10 mg PO BEDTIME fluticasone propionate 50 mcg/actuation (Flonase Allergy Relief) 2 sprays intranasal DAILY 30 days ondansetron HCl 4 mg PO Q8H PRN 3 days polyethylene glycol 3350 (Miralax) 17 grams PO DAILY riboflavin (vitamin B2) 400 mg PO DAILY rimegepant (Nurtec ODT) 75 mg PO Q OTHER DAY PRN Tobacco use date assessed: 08/16/25 Dental Screening Dental Screen Date: 08/16/25 Did you have a dental visit in the last 12 months?: Yes Did you have a dental problem in the last 6 months where you did not have access to dental care?: No Was dental information given to patient?: Patient has dentist HPI HPI Comments History of Present Illness Details 19-year-old female with vitamin-D defici ency, mild intermittent asthma, migraine headaches, major depressive disorder, generalized anxiety disorder allergic rhinitis, cerebellar tonsillar ectopia s/p appendectomy Social: [place] [employer] [place] born in [place], lives with mother. Does not drive but got her permit! Friends and family bring her to appointments. 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 Doing well Health Maintenance Flu declined Tdap 2017 Pap n/a Specialists: Counseling no longer Neuro @ [facility] - no longer ff'd optho wears glasses, last exam Sep 2024 History of Present Illness The patient is a 19 year old individual presenting for a complete physical exam. Migraine Headaches: - The patient has a history of migraine headaches and takes amitriptyline 10 mg and riboflavin 400 mg at bedtime as preventative therapy. - For abortive therapy, the patient uses Nurtec ODT as needed, which is taken about four times a month. - The patient reports that Nurtec reduce s the pain but does not completely resolve the migraine, leaving a residual throbbing sensation. - The preventative medication has reduce d the frequency of migraines, though they can still be triggered by light, sound, and stress. - Vomiting can occur with some migraines , for which the patient has ondansetron as needed. Abdominal Pain: - The patient reports a recent onset of stomach pain after eating, which has caused the patient to limit food intake. - This pain is associated with bloating and is localized to the right lower quadrant. - The symptoms began sometime after a tr ip to the beach in the summer but not immediately following it. - The patient stopped drinking cow's mil k and switched to oat milk, but this has not improved the symptoms. - The patient has also stopped eating ra men noodles and has reduced chocolate intake, as they seemed to worsen the pain. - The pain is not associated with the pa tient's menstrual cycle or back pain. - The patient now has regular bowel move ments and is no longer constipated. - No stool samples have been previously collected. - Constipation is now controlled w/ rj lax. Anxiety and Panic Attacks: - The patient has a history of anxiety a nd depression, but is not currently on medication for these conditions. - As a child, the patient experienced an xiety with vomiting and had panic attacks in high school. - The patient experienced one panic abimbola ck last month and about two total this year, often related to stress from balancing work and school. - The patient has no interest in budget counselor ing or medication for anxiety at this time. Asthma: - The patient has a history of mild inte rmittent asthma and has an albuterol rescue inhaler. - The patient reports not having used th e inhaler for a while and breathing is fine. Allergic Rhinitis: - The patient has allergic rhinitis and uses Flonase, which helps with symptoms. - The patient reports current nasal stuf finess related to weather changes, but notes tearing of the eyes has resolved. Family History - No changes in family medical history r eported. 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 - Employment: The patient is employed an d reports stress from balancing work and school. - Diet: The patient does not eat breakfa st, has a small lunch, and has restricted intake of certain foods like chocolate and ramen due to stomach pain. - The patient has stopped drinking cow's milk and uses oat milk but continues to eat cheese. - Hydration: The patient is working on d rinking more water. - Sexuality: The patient reports never h aving been sexually active. - Social Support: The patient's sister i s a source of support during panic attacks. 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 Review of Systems - Constitutional: Denies weight change. - Eyes: Reports resolution of previous t earing. - ENT: Reports nasal stuffiness. - Respiratory: Denies any breathing issu es. - Gastrointestinal: Reports stomach pain and bloating after eating. - Neurological: Reports migraine headach es with residual throbbing pain. - Psychiatric: Reports stress and anxiet y, with a history of panic attacks. - Denies suicidal or homicidal ideation. Physical Exam General: Well developed, well nourished, in no acute distress. Appears stated age. Head: Normocephalic, atraumatic. Eyes: Pupils are equal, round and reactive to light and accommodation. Conjunctivae are clear. Scleras nonicteric bilat. Vision grossly normal. Ears: TMs clear AU, EACS WNL Nose: Patent, without discharge. Stuffy due to weather changes. Neck: No carotid bruit bilat. Supple, no adenopathy or thyromegaly. Breast: Edu on SBE Lungs: Clear to auscultation bilaterally. No rales, rhonchi or wheeze noted. Good air flow in all montaño. Heart: Regular rate and rhythm. No murmurs, click, rubs or gallops are noted. Abdomen: Bowel sounds present in all quadrants. The abdomen is soft, with no masses or organomegaly noted. No hernias are noted. Tender over suprapubic area, right side. : Deferred. 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 Extremities: No clubbing, cyanosis nor edema is noted. Neurologic: Gait and station normal. Cranial Nerves 2-12 intact. Motor strength grossly symmetrical and intact. No sensory loss. Balance normal. Skin: No rashes, ulcers, or lesions noted. Turgor is good. Skin color is good. Hair and nails are without abnormalities. Psych: Normal eye contact, affect and mood appropriate, and normal interactions. Patient is alert and appropriate to context. Reports history of anxiety and depression, with occasional panic attacks. Not currently on medications for anxiety or depression. Results - Lab results from August 04, 2024: Vi tamin D was slightly low. Medical Decision Making The patient is a 19-year-old individual presenting for a complete physical exam with several chronic issues. For the migraines, the current abortive therapy with Nurtec is only partially effective. Given the partial response, the plan is to augment the current preventative regimen (amitriptyline, riboflavin) with magnesium oxide 400 mg daily to decrease headache severity and frequency, which may improve Nurtec's efficacy, before considering a change in abortive therapy. The patient's new-onset postprandial abdominal pain in the right lower quadrant warrants investigation. The differential is broad and includes lactose intolerance, celiac disease, inflammatory bowel disease such as ulcerative coli tis, or an H. pylori infection. Initial workup will include blood tests to screen for celiac disease, a stool sample to look for H. pylori antigen and markers of colonic inflammation, and a urinalysis to rule out a urinary tract infection. The patient's weight is stable, which is reassuring. The patient's anxiety and infrequent panic attacks appear to be related to current life stressors. The patient declined pharmacotherapy or counseling at this time due to the perceived burden and aversion to taking additional medications. The plan is to monitor the frequency of these episodes and to reconsider treatment options, including as-needed medication, if they worsen. The patient's asthma and allergic rhinitis are well-controlled on the current regimen. Plan 1. Migraine Headaches - Add magnesium oxide 400 mg daily as an additional preventative measure. - Continue amitriptyline 10 mg and ribof jerome 400 mg at bedtime. - Continue Nurtec ODT as needed for abor tive therapy. - A prescription for magnesium oxide facundo l be sent to the pharmacy; advised patient it can also be purchased over the counter, cautioning to specifically get the oxide form. - Will reassess the efficacy of Nurtec a fter the addition of magnesium. 2. Abdominal Pain - Order bloodwork including CBC, liver f unction panel, and celiac screen with IgA. - Obtain a urine sample for urinalysis t o rule out infection. - Provide a stool collection kit to test for H. pylori and markers of inflammation to screen for conditions like ulcerative colitis. - The bloodwork and urine sample are to be completed today; the stool kit can be returned at the patient's convenience. - Follow up to review results. 3. Anxiety With Panic Attacks - Patient declined counseling or daily m edication at this time. - Monitor frequency and severity of leobardo c attacks. - Discussed the potential option of an a s-needed medication if episodes become more frequent or if an anticipatory trigger is identified. - Patient to follow up if symptoms worse n. 4. Allergic Rhinitis - Continue using Flonase as needed for n minerva symptoms. 5. Mild Intermittent Asthma - Continue to have albuterol rescue inha ler available for use as needed. Patient Instructions - Please go to the lab to have your bloo d drawn and provide a urine sample today. - Take the stool (poop) collection kit h ome and bring the sample back to the lab when you can. - Begin taking one magnesium oxide 400 m g tablet each day to help prevent migraines. - It is important to get magnesium 'oxid e', not other types like magnesium 'citrate'. - If the pharmacy charges too much for t he magnesium, you can buy it cheaply on jaeyos. - Continue taking your amitriptyline, ri boflavin, and Nurtec as you have been. - Please let us know if your migraines d o not get better or if your anxiety or panic attacks happen more often. - RTO 1 year CPE sooner PRN Consent The patient provided verbal consent for the physical examination, which included raising clothing to examine the skin on the back and to listen to the abdomen. The patient also verbally agreed to undergo diagnostic testing, including a blood draw, urine sample, and a take-home stool collection kit, after the rationale for these tests was explained. Patient was informed and verbally consented to the use of an ambient scribe for clinic note documentation during this visit. An additional 15 minutes was spent addressing the problem(s) noted at todays visit. This includes time spent before the visit reviewing the chart, time spent during the visit, and time spent after the visit on documentation reviewing laboratory results, diagnostic imaging, medications, performing a medically necessary evaluation, counseling on diagnoses, care coordination, ordering ap propriate tests, ordering appropriate medications, review of tests performed by other providers, reporting test results with the patient, communication with other healthcare providers. [facility], LAT[facility] Medical History (Updated 08/16/25 @ 11:10 by Francesca Gill [facility]) Appendicitis Asthma Mild depression Moderate anxiety Surgical History History of appendectomy Family History Maternal Grandmother Hypertension Cardiovascular disease Other Asthma Social History (Updated 08/03/24 @ 11:17 by Comfort Bragg CMA) Household Members: Family Housing: House (Town house) Alcohol intake: never Patient Tobacco Use Status: Never used Tobacco e-Cigarette/Vaping Use: Never Used Second Hand Smoke Exposure: No service: No Current occupational status: employed 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 1. Little interest or pleasure in doing things: not at all 2. Feeling down, depressed, or hopeless: not at all 3. Trouble falling or staying asleep, or sleeping too much: not at all 4. Feeling tired or having little energy: not at all 5. Poor appetite or overeating: not at all 6. Feeling bad about yourself - or that you are a failure or have let yourself or your family down: not at all 7. Trouble concentrating on things, such as reading the newspaper or watching television: not at all 8. Moving or speaking so slowly that other people could have noticed. Or the opposite - being so fidgety or restless that you have been moving around a lot more than usual: not at all 9. Thoughts that you would be better off or of hurting yourself in some way: not at all Total score: 0 Depression Screening Interpretation: Negative Depression Screening Done: Yes 16312 - PHQ-9 Billing: Yes Source: Developed by Drs. Derik Rowe, Aracelis Jo, George Kaur and colleagues, with an educational sissy from [employer]. Thrive Questionnaire Date Thrive assessed: 08/16/25 I am a: Patient What is your living situation today?: I have a steady place to live Within the past 12 months, did the food you bought not last and you didn't have the money to get more?: I choose not to answer this question Within the past 12 months, did you worry whether your food would run out before you got money to buy more?: I choose not to answer this question Do you have trouble paying for medicines?: I choose not to answer this question Do you have trouble getting transportation to medical appointments?: I choose not to answer this question Do you have trouble paying your heating and electricity bill?: I choose not to answer this question Do you have trouble taking care of your child, family member or friend?: I choose not to answer this question Do you have trouble with day-to-day activities such as bathing, preparing meals, shopping, managing finances, etc.?: I choose not to answer this question Are you currently unemployed and looking for a job?: I choose not to answer this question Are you interested in more education?: I choose not to answer this question Please select the resources that you would like help with: None Currently or been in a relationship where the following occur: No concerns reported and I choose not to answer THRIVE Score: 0 AUDIT C Alcohol Use Questionnaire (AUDIT-C) 1. How often do you have a drink containing alcohol?: Never 3. How often do you have six or more drinks on one occasion?: Never Total Score: 0 Score Reviewed/Action Taken: Yes RAVI-7 AMB Questionnaire RAVI-7 Date RAVI - 7 assessed: 08/16/25 Feeling nervous, anxious, or on edge: 1 = Several days Not being able to stop or control worryin = Not at all Worrying too much about different things: 1 = Several days Trouble relaxin = Not at all Being so restless that it is hard to sit still: 1 = Several days Becoming easily annoyed or irritable: 0 = Not at all Feeling afraid as if something awful might happen: 0 = Not at all Total RAVI-7 score (0-4 normal; 5-9 mild; 10-14 moderate; 15-21 severe): 3 Source: Developed by Drs. Derik Rowe, Aracelis Jo, George Kaur and colleagues, with an educational sissy from [employer]. RAVI-7 Assessment Billing RAVI-7 Assessment Tool: RAVI-7 Assessment 12797 Physical exam (Primary Care) Vital Signs: Last Vital Signs Temp 97.2 F 08/16/25 10:42 Resp 12 08/16/25 10:42 BP 101/67 08/16/25 10:42 BMI result Body Mass Index 20.7 Tobacco/Smoking Status: Tobacco use Status Tobacco use date assessed 08/16/25 08/16/25 10:33 Patient Tobacco Use Status Never used Tobacco 08/16/25 10:33 e-Cigarette/Vaping Use Never Used 08/16/25 10:33 Depression Screening Interpretation: Negative Thrive Assessment: Date of Thrive Assessment Date Thrive assessed 08/16/25 08/16/25 10:33 Currently or been in a relationship where the following occur: No concerns reported and I choose not to answer Coding Level of Care Code Est Pt Level 2 (97403) Est Pt Prev Care 18-39y(92726) Diagnoses Adult general medical exam Z00.00 Postprandial abdominal bloating R14.0 Vitamin D deficiency E55.9 Influenza vaccination declined Z28.21 Mild episode of recurrent major depressive disorder F33.0 Major depression episode severity: mild RAVI (generalized anxiety disorder) F41.1 Allergic rhinitis, unspecified seasonality, unspecified trigger J30.9 Allergic rhinitis trigger: unspecified Allergic rhinitis seasonality: unspecified Slow transit constipation K59.01 Constipation type: slow transit constipation Intractable migraine without aura and with status migrainosus G43.011 Status migrainosus presence: with status migrainosus Intractability: intractable Cerebellar tonsillar ectopia Q04.8 Mild intermittent asthma in adult without complication J45.20 Laboratory exam ordered as part of routine general medical examination Z00.00 Additional Codes RAVI-7 Assessment Billing - RAVI-7 Assessment Tool: RAVI-7 Assessment 04401 ([id number]) PHQ-9 - 35220 - PHQ-9 Billing: Yes ([id number]) Assessment & Plan Assessment & Plan (1) Adult general medical exam: Onset Date: ~08/16/25 Code(s): Z00.00 - Encounter for general adult medical examination without abnormal findings Category: Medical (2) Postprandial abdominal bloating: Code(s): R14.0 - Abdominal distension (gaseous) Category: Medical (3) Vitamin D deficiency: Code(s): E55.9 - Vitamin D deficiency, unspecified Category: Medical (4) Influenza vaccination declined: Onset Date: ~08/16/25 Code(s): Z28.21 - Immunization not carried out because of patient refusal Category: Medical (5) MDD (major depressive disorder), recurrent episode: Code(s): F33.9 - Major depressive disorder, recurrent, unspecified Category: Medical Qualifiers: Major depression episode severity: mild Qualified Code(s): F33.0 - Major depressive disorder, recurrent, mild (6) RAVI (generalized anxiety disorder): Code(s): F41.1 - Generalized anxiety disorder Category: Medical (7) Allergic rhinitis: Code(s): J30.9 - Allergic rhinitis, unspecified Category: Medical Qualifiers: Allergic rhinitis trigger: unspecified Allergic rhinitis seasonality: unspecified Qualified Code(s): J30.9 - Allergic rhinitis, unspecified (8) Constipation: Code(s): K59.00 - Constipation, unspecified Category: Medical Qualifiers: Constipation type: slow transit constipation Qualified Code(s): K59.01 - Slow transit constipation (9) Migraine headache without aura: Code(s): G43.009 - Migraine without aura, not intractable, without status migrainosus Category: Medical Qualifiers: Status migrainosus presence: with status migrainosus Intractability: intractable Qualified Code(s): G43.011 - Migraine without aura, intractable, with status migrainosus (10) Cerebellar tonsillar ectopia: Comment: Seen on MRI imaging, referred to Neurosurgery - no surgery needed. 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 Code(s): Q04.8 - Other specified congenital malformations of brain Category: Medical (11) Mild intermittent asthma in adult without complication: Code(s): J45.20 - Mild intermittent asthma, uncomplicated Category: Medical (12) Laboratory exam ordered as part of routine general medical examination: Code(s): Z00.00 - Encounter for general adult medical examination without abnormal findings Category: Medical Plan . Orders: Orders Celiac Disease Panel Today R14.0 - Abdominal distension (gaseous) H pylori Ag Stool Today R14.0 - Abdominal distension (gaseous) Calprotectin, Fecal Today R14.0 - Abdominal distension (gaseous) Complete Blood Count no Diff Today E55.9 - Vitamin D deficiency, unspecified, Z00.00 - Encounter for general adult medical examination without abnormal findings UA CC w/rflx Micro + Cult Today E55.9 - Vitamin D deficiency, unspecified, R30.0 - Dysuria, Z00.00 - Encounter for general adult medical examination without abnormal findings Vitamin D 25-OH Total Today E55.9 - Vitamin D deficiency, unspecified, Z00.00 - Encounter for general adult medical examination without abnormal findings Comprehensive Met. Panel Today E55.9 - Vitamin D deficiency, unspecified, Z00.00 - Encounter for general adult medical examination without abnormal findings GI Panel Today E55.9 - Vitamin D deficiency, unspecified, Z00.00 - Encounter for general adult medical examination without abnormal findings Medications: New magnesium oxide 400 mg PO BEDTIME 90 caps 2RF Patient Instructions: Health screenings for women You should visit your health care provider from time to time, even if you are healthy. The purpose of these visits is to: Screen for medical issues Assess your risk for future medical problems Encourage a healthy lifestyle Update vaccinations and other preventive care services Help you get to know your provider in case of an illness Information Even if you feel fine, you should still see your provider for regular checkups. These visits can help you avoid problems in the future. For example, the only way to find out if you have high blood pressure is to have it checked regularly. High blood sugar and high cholesterol levels also may not have any symptoms in the early stages. A simple blood test can check for these conditions. There are specific times when you should see your provider or receive specific health screenings. The [place] Preventive Services Task Force publishes a list of recommended screenings. Below are screening guidelines for women ages 18 to 39. BLOOD PRESSURE SCREENING Your blood pressure should be checked at least once every 3 to 5 years if: Your blood pressure is in the normal range (top number less than 120 mm Hg and bottom number less than 80 mm Hg) You don't have risk factors for high blood pressure Ask your provider if you need your blood pressure checked more often if: The top number is 120 to 129 mm Hg or the bottom number is 70 to 79 mm Hg You have diabetes, heart disease, kidney problems, are overweight, or have certain other health conditions You have a first-degree relative with high blood pressure You are Black You had high blood pressure during a If the top number is 130 mm Hg or greater or the bottom number is 80 mm Hg or greater, this is considered stage 1 hypertension. Schedule an appointment with your provider to learn how you can reduce your blood pressure. Watch for blood pressure screenings in your area. Ask your provider if you can stop in to have your blood pressure checked. BREAST CANCER SCREENING Experts do not agree about the benefits of breast self-exams in finding breast cancer or saving lives. Talk to your provider about what is best for you. A screening mammogram is not recommended for most women under age 40. Your provider may discuss and recommend mammograms, MRI scans, or ultrasounds if you have an increased risk for breast cancer, such as: A mother or sister who had breast cancer at a young age (most often starting screening earlier than the age the close relative was diagnosed) You carry a high-risk genetic marker CERVICAL CANCER SCREENING Cervical cancer screening should start at age 21 years unless your provider advises otherwise. After the first test: Women ages 21 through 29 should have a Pap test every 3 years. Exoprts do not agree on whether HPV testing is recommended for this age group. Women ages 30 through 65 should be screened with either a Pap test every 3 years or the HPV test every 5 years or both tests every 5 years (called cotesting ). Women who have been treated for precancer (cervical dysplasia) should continue to have Pap tests for 20 years after treatment or until age 65, whichever is longer. If you have had your uterus and cervix removed (total hysterectomy), and you have not been diagnosed with cervical cancer or precancer (high grade cervical neoplasia), you do not need cervical cancer screening. CHOLESTEROL SCREENING Cholesterol screening should begin at: Age 45 for women with no known risk factors for coronary heart disease Age 20 for women with known risk factors for coronary heart disease Repeat cholesterol screening should take place: Every 5 years for women with normal cholesterol levels More often if changes occur in lifestyle (including weight gain and diet) More often if you have diabetes, heart disease, kidney problems, or certain other conditions DIABETES SCREENING You should be screened for diabetes starting at age 35 and then repeated every 3 years if you have no risk factors for diabetes. Screening may need to start earlier and be repeated more often if you have other risk factors for diabetes, such as: You have a first degree relative with diabetes. You are overweight or have obesity. You have high blood pressure, prediabetes, or a history of heart disease. Screening for diabetes should be done if you are planning to become and you are overweight and have other risk factors such as high blood pressure. DENTAL EXAM Go to the dentist once or twice every year for an exam and cleaning. Your dentist will evaluate if you need more frequent visits. EYE EXAM Have an eye exam every 5 to 10 years before age 40. If you have vision problems, have an eye exam every 2 years or more often if recommended by your provider. You should have an eye exam that includes an examination of your retina (back of your eye) at least every year if you have diabetes. IMMUNIZATIONS Commonly needed vaccines include: Flu shot: get one every year. COVID-19 vaccine: ask your provider what is best for you. Tetanus-diphtheria and acellular pertussis (Tdap) vaccine: have one at or after age 19 as one of your tetanus-diphtheria vaccines if you did not receive it as an adolescent. Tetanus-diphtheria: have a booster (or Tdap) every 10 years. Varicella vaccine: receive 2 doses if you never had chickenpox or the varicella vaccine. Hepatitis B vaccine: receive 2, 3, or 4 doses, depending on your exact circumstances. Measles, mumps, and rubella (MMR) vaccine: receive 1 to 2 doses if you are not already immune to MMR. Your provider can tell you if you are immune. Ask your provider about the human papillomavirus (HPV) vaccine if: You have not received the HPV vaccine in the past You have not completed the full vaccine series (you should catch up on this shot) Ask your provider if you should receive other immunizations if you have certain health problems that increase your risk for some diseases such as pneumonia. INFECTIOUS DISEASE SCREENING Women who are sexually active should be screened for chlamydia and gonorrhea up until age 25. Women 25 years and older should be screened for chlamydia and gonorrhea if at high risk. Screening for hepatitis C: All adults ages 18 to 79 should get a one-time test for hepatitis C. people should be screened at every . Screening for human immunodeficiency virus (HIV): All people ages 15 to 65 should get a one-time test for HIV. Depending on your lifestyle and medical history, you may also need to be screen ed for infections such as syphilis and HIV, as well as other infections. PHYSICAL EXAM All adults should visit their provider from time to time, even if they are healthy. The purpose of these visits is to: Screen for disease Assess your risk of future medical problems Encourage a healthy lifestyle Update your vaccinations and other preventive care services Maintain a relationship with a provider in case of an illness Your height, weight, and BMI should be checked at every exam. During your exam, your provider may ask you about: Depression and anxiety Diet and exercise Alcohol and tobacco use Safety issues, such as using seat belts, smoke detectors, and intimate partner violence Your medicines and risk for interactions SKIN SELF-EXAM Your provider may check your skin for signs of skin cancer, especially if you're at high risk, such as if you: Have had skin cancer before Have close relatives with skin cancer Have a weakened immune system OTHER SCREENING Talk with your provider about colon cancer screening if you have a strong family history of colon cancer or polyps, or if you have had inflammatory bowel disease or polyps yourself. Routine bone density screening of women under 40 is not recommended.
[2025-08-16 10:42] VITALS: BP 101/67; RESP 12; TEMP 36.2; BMI 20.7
== END 2025-08-16 11:12 | disposition home or self-care (01) ==
LOC: HO.HMCFM 10:31
PROVIDERS: PCP Nurse Practitioner Family; Visit Provider Nurse Practitioner Family
DX: Z00.00 Encounter for general adult medical examination without abnormal findings (principal); Q04.8 Other specified congenital malformations of brain; E55.9 Vitamin D deficiency, unspecified; F33.0 Major depressive disorder, recurrent, mild; R14.0 Abdominal distension (gaseous); R10.84 Generalized abdominal pain; F41.1 Generalized anxiety disorder; J30.9 Allergic rhinitis, unspecified; G43.011 Migraine without aura, intractable, with status migrainosus; J45.20 Mild intermittent asthma, uncomplicated; K59.01 Slow transit constipation; Z28.21 Immunization not carried out because of patient refusal

== ENCOUNTER 2025-09-04 17:30 | Outpatient (REF) | payer OTHER, SELFPAY ==
[2025-09-05 10:59] LABS: E. coli EAEC Not Detected (Not Detect.); E. coli EPEC Not Detected (Not Detect.); E. coli ETEC Not Detected (Not Detect.); E. coli STEC Not Detected (Not Detect.); Shigella sp./EIEC Not Detected (Not Detect.)
== END 2025-09-04 17:31 | disposition home or self-care (01) ==
LOC: HO.LNP 17:30
PROVIDERS: Visit Provider Nurse Practitioner Family
DX: Z00.00 Encounter for general adult medical examination without abnormal findings (principal); E55.9 Vitamin D deficiency, unspecified; R14.0 Abdominal distension (gaseous)
CPT/HCPCS: 83993; 87338; 87507

== ENCOUNTER 2025-09-05 08:05 | Outpatient (REF) | payer OTHER, SELFPAY ==
[2025-09-05 10:12] LABS: Appearance Urine Clear; Glucose Urine UA Negative (Negative); PH 5.5 (5.0-9.0); Specific Gravity - Urine 1.020 (1.005-1.025); UMIC TRIGGER UACC YES
== END 2025-09-05 08:06 | disposition home or self-care (01) ==
LOC: HO.LNP 08:05
PROVIDERS: Visit Provider Nurse Practitioner Family
DX: Z00.00 Encounter for general adult medical examination without abnormal findings (principal); R30.0 Dysuria; R14.0 Abdominal distension (gaseous); E55.9 Vitamin D deficiency, unspecified
CPT/HCPCS: 81001